=== PATIENT | female | born 1985 | race Asian ===

== ENCOUNTER 2016-12-07 05:33 | Outpatient (CLI) | payer OTHER | END 2016-12-07 05:34 | disposition EMS.NT | LOC: EMS 05:33 | PROVIDERS: ATTEND Surgery | DX: R07.0 Pain in throat (principal); Y04.8XXA Assault by other bodily force, initial encounter ==

== ENCOUNTER 2016-12-07 09:47 | Outpatient (CLI) | payer OTHER | END 2016-12-07 09:48 | disposition critical access hospital (66) | LOC: EMS 09:47 | PROVIDERS: ATTEND Surgery | DX: R07.89 Other chest pain (principal); Y04.2XXA Assault by strike against or bumped into by another person, initial encounter | CPT/HCPCS: A0425; A0429 ==

== ENCOUNTER 2016-12-07 10:06 | Emergency (ER) | payer OTHER ==
[2016-12-07] MEDS ORDERED: PROPARACAINE 0.5% OPHTH DROPS 15 ML EACHEYE STA (10:21)
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
[2016-12-07] MEDS ORDERED: PROPARACAINE 0.5% OPHTH DROPS 15 ML ONE (10:27)
[2016-12-07] MEDS ORDERED: IBUPROFEN 400 MG TABLET PO STA (11:06)
[2016-12-07] MEDS ORDERED: ACETAMINOPHEN 325 MG TABLET PO STA (11:06)
[2016-12-07] MEDS ORDERED: IBUPROFEN 400 MG TABLET PO ONE (11:24)
[2016-12-07] MEDS ORDERED: ACETAMINOPHEN 325 MG TABLET PO ONE (11:24)
--- NOTE | 2016-12-07 11:37 | XRAY Preliminary Report ---
Exam: XR CHEST 2 VIEW PA/LAT IMPRESSION: Negative 2-view chest radiography. [facility] SITE ID: [id number]
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
[2016-12-07 13:55] VITALS: BP 132/66
== END 2016-12-07 13:52 | disposition home or self-care (01) ==
LOC: EDUNIT# → ED 10:06
DX: H10.213 Acute toxic conjunctivitis, bilateral (principal); T65.893A Toxic effect of other specified substances, assault, initial encounter; S20.211A Contusion of right front wall of thorax, initial encounter; Y04.2XXA Assault by strike against or bumped into by another person, initial encounter
CPT/HCPCS: 71020; 99283; 99284; A9270; J3490